=== PATIENT | female | born 2000 | race Caucasian/White ===

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

== ENCOUNTER 2018-04-21 22:52 | Inpatient (IN) | payer MEDICAID ==
[~2018-04-21] VITALS: Ht 160 cm; Wt 68.0 kg
[2018-04-22 00:09] LABS: BASOPHILS % (AUTO) 0.8 % (0.0-2.0); EOSINOPHILS % (AUTO) 0.5 % (1.0-6.0); HEMOGLOBIN 13.2 g/dL (12.0-16.0); LYMPHOCYTES % (AUTO) 17.1 % (22.0-44.0); MEAN CORPUSCULAR HGB CONC 33.9 G/dL (31.0-37.0); MEAN CORPUSCULAR VOLUME 83 fL (80-100); MONOCYTES # (AUTO) 0.3 K/uL (0.1-1.0); MONOCYTES % (AUTO) 5.9 % (2.0-9.0); NEUTROPHILS # (AUTO) 4.4 K/uL (1.8-7.7); NEUTROPHILS % (AUTO) 75.7 % (40.0-70.0); PLATELET COUNT (AUTO) 309 K/uL (150-450); RED BLOOD CELL COUNT(AUTO) 4.72 MIL/uL (4.00-5.20); RED CELL DISTRIBUTION WIDTH 15.2 % (11.5-14.5)
[2018-04-22 00:25] LABS: ANION GAP 13 mmol/L (8-16); CALCIUM, TOTAL 9.3 mg/dL (8.8-10.5); CARBON DIOXIDE 26 mmol/L (22-29); CHLORIDE 105 mmol/L (98-107); CREATININE 0.84 mg/dL (0.60-1.30); GLOMERULAR FILTR. RATE CALC > 60 mL/min (>60); GLUCOSE,RANDOM 105 mg/dL (70-110); POTASSIUM 3.6 mmol/L (3.5-5.1); SODIUM SERUM 144 mmol/L (136-145); UREA NITROGEN, BLOOD 7 mg/dL (7-18)
[2018-04-22 00:31] LABS: ALANINE AMINOTRANSFERASE 13 U/L (12-78); ALBUMIN 4.3 g/dL (3.4-5.0); ALKALINE PHOSPHATASE 113 U/L (46-116); ASPARTATE AMINOTRANSFERASE 14 U/L (15-37); BILIRUBIN,TOTAL 0.3 mg/dL (0.1-1.0); TOTAL PROTEIN, SERUM 8.3 g/dL (6.4-8.2)
[2018-04-22] MEDS ORDERED: HALOPERIDOL 5 MG TABLET PO PRN (00:45)
[2018-04-22 01:02] LABS: AMPHET/METH SCREEN,URINE NEGATIVE (NEGATIVE); BARBITURATE SCREEN, URINE NEGATIVE (NEGATIVE); BENZODIAZEPINES SCREEN,URINE NEGATIVE (NEGATIVE); CANNABINOID SCREEN,URINE NEGATIVE (NEGATIVE); COCAINE SCREEN,URINE NEGATIVE (NEGATIVE); METHADONE SCREEN, URINE NEGATIVE (NEGATIVE); OPIATE SCREEN,URINE NEGATIVE (NEGATIVE); PHENCYCLIDINE SCREEN,URINE NEGATIVE (NEGATIVE)
[2018-04-22 01:30] LABS: CHOL/HDL RATIO 3.9 (3.9-5.7); CHOLESTEROL 225 mg/dL (131-200); FREE T4 (FREE THYROXINE) 1.04 ng/dL (0.76-1.46); HDL CHOLESTEROL 57 mg/dL (40-60); LDL CHOL (CALC.) 145 mg/dL (0-130); THYROID STIMULATING HORMONE 0.48 uIU/mL (0.36-3.74); TRIGLYCERIDES 113 mg/dL (15-150)
[2018-04-22] MEDS ORDERED: ACETAMINOPHEN 500 MG TABLET PO ONE (10:00)
[2018-04-22 16:18] VITALS: BP 115/70
[2018-04-22] MEDS ORDERED: CloNIDine HCL 0.1 MG TABLET PO PRN (16:45)
[2018-04-22] MEDS ORDERED: MAGNESIUM HYDROXIDE SUSPENSION 30 ML UDCUP PO PRN (16:45)
[2018-04-22] MEDS ORDERED: ACETAMINOPHEN 325 MG TABLET PO PRN (16:45)
[2018-04-22] MEDS ORDERED: MAG HYDROX/AL HYDROX/SIMETH ES 30 ML SUSPENSION UDCUP PO PRN (16:45)
[2018-04-22] MEDS ORDERED: LOPERAMIDE HCL 2 MG CAPSULE PO PRN (16:45)
[2018-04-22] MEDS ORDERED: ONDANSETRON HCL 4 MG TABLET PO PRN (16:45)
[2018-04-22] MEDS ORDERED: DOCUSATE SODIUM 100 MG CAPSULE PO PRN (16:45)
[2018-04-22] MEDS ORDERED: IBUPROFEN 400 MG TABLET PO PRN (16:45)
[2018-04-22] MEDS ORDERED: PETROLATUM,WHITE 71 GM JELLY TP PRN (16:45)
[2018-04-22] MEDS ORDERED: ALBUTEROL SULFATE HFA 90 MCG/PUFF 8 GM INHALER IH PRN (16:45)
[2018-04-23 00:10] VITALS: BP 117/67
[2018-04-23] MEDS: ZOLPIDEM TARTRATE 10 MG TABLET PO PRN ×2 (00:30→21:10)
[2018-04-23] MEDS: LORazepam 1 MG TABLET PO PRN ×4 (00:30→20:39)
[2018-04-23 08:00] VITALS: BP 118/64
[2018-04-23 09:23] LABS: BASOPHILS % (AUTO) 0.9 % (0.0-2.0); EOSINOPHILS % (AUTO) 3.7 % (1.0-6.0); HEMATOCRIT 36.3 % (36-46); HEMOGLOBIN 12.1 g/dL (12.0-16.0); LYMPHOCYTES # (AUTO) 1.7 K/uL (1.0-4.8); LYMPHOCYTES % (AUTO) 36.4 % (22.0-44.0); MEAN CORPUSCULAR HEMOGLOBIN 27.7 pg (26.0-34.0); MEAN CORPUSCULAR HGB CONC 33.3 G/dL (31.0-37.0); MEAN CORPUSCULAR VOLUME 83 fL (80-100); MONOCYTES # (AUTO) 0.5 K/uL (0.1-1.0); NEUTROPHILS # (AUTO) 2.3 K/uL (1.8-7.7); PLATELET COUNT (AUTO) 286 K/uL (150-450); RED BLOOD CELL COUNT(AUTO) 4.36 MIL/uL (4.00-5.20)
[2018-04-23 10:14] LABS: ALANINE AMINOTRANSFERASE 11 U/L (12-78); ALBUMIN 3.7 g/dL (3.4-5.0); ALKALINE PHOSPHATASE 93 U/L (46-116); ANION GAP 9 mmol/L (8-16); ASPARTATE AMINOTRANSFERASE 12 U/L (15-37); BILIRUBIN,TOTAL 0.5 mg/dL (0.1-1.0); CALCIUM, TOTAL 8.8 mg/dL (8.8-10.5); CARBON DIOXIDE 28 mmol/L (22-29); CHLORIDE 105 mmol/L (98-107); CHOL/HDL RATIO 3.9 (3.9-5.7); CHOLESTEROL 177 mg/dL (131-200); CREATININE 0.91 mg/dL (0.60-1.30); GLOMERULAR FILTR. RATE CALC > 60 mL/min (>60); GLUCOSE,RANDOM 76 mg/dL (70-110); HDL CHOLESTEROL 45 mg/dL (40-60); LDL CHOL (CALC.) 104 mg/dL (0-130); POTASSIUM 3.6 mmol/L (3.5-5.1); SODIUM SERUM 142 mmol/L (136-145); THYROID STIMULATING HORMONE 0.69 uIU/mL (0.36-3.74); TRIGLYCERIDES 138 mg/dL (15-150); UREA NITROGEN, BLOOD 17 mg/dL (7-18)
[2018-04-23 16:34] VITALS: BP 132/77
[2018-04-24 05:32] VITALS: BP 115/83
[2018-04-24 08:29] VITALS: BP 108/61
[2018-04-24 16:06] VITALS: BP 106/68
[2018-04-24] MEDS ORDERED: MIRTAZAPINE 15 MG TABLET PO SCH (21:00)
[2018-04-24] MEDS: ZOLPIDEM TARTRATE 10 MG TABLET PO PRN (21:04)
[2018-04-25 02:12] VITALS: BP 103/65
[2018-04-25 08:30] VITALS: BP 113/66
[2018-04-25] MEDS ORDERED: MIRT15 PO (10:41)
== END 2018-04-25 11:45 | disposition home or self-care (01) | DRG 754 ==
LOC: EMS 22:53 → B2S 04-22 14:36
PROVIDERS: ADMIT Psychiatry & Neurology Psychiatry; ATTEND Psychiatry & Neurology Psychiatry
DX: F32.9 Major depressive disorder, single episode, unspecified (principal); R45.851 Suicidal ideations; R44.0 Auditory hallucinations; F41.9 Anxiety disorder, unspecified; F10.10 Alcohol abuse, uncomplicated; Y90.6 Blood alcohol level of 120-199 mg/100 ml; J45.909 Unspecified asthma, uncomplicated; Z71.41 Alcohol abuse counseling and surveillance of alcoholic; Z80.9 Family history of malignant neoplasm, unspecified; Z81.8 Family history of other mental and behavioral disorders; Z59.0 Homelessness
CPT/HCPCS: 83036; 84439; 84443; 99285; G0480

== ENCOUNTER 2022-11-03 21:56 | Emergency (ER) | payer MEDICAID, OTHER ==
[~2022-11-03] VITALS: Ht 160 cm; Wt 79.1 kg
[~2022-11-03 21:56] MED LIST changes: +MIRT-89 PO; -NO MEDS
[2022-11-03 23:31] VITALS: BP 129/83
[2022-11-04] MEDS ORDERED: CEPHALEXIN MONOHYDRATE 500 MG CAPSULE PO ONE (00:30)
[2022-11-04] MEDS ORDERED: DOXYCYCLINE HYCLATE 100 MG TABLET PO ONE (00:30)
[2022-11-04] MEDS ORDERED: ACETAMINOPHEN/CODEINE 300-30 MG TABLET PO ONE (00:30)
[2022-11-04] MEDS ORDERED: ACET-2080 PO (00:32)
[2022-11-04] MEDS ORDERED: CEPH-558 PO (00:32)
[2022-11-04] MEDS ORDERED: IBUP-1554 PO (00:32)
[2022-11-04] MEDS ORDERED: DOXY-354 PO (00:32)
== END 2022-11-04 00:53 | disposition home or self-care (01) ==
LOC: EMS 22:14
DX: L03.211 Cellulitis of face (principal); J40 Bronchitis, not specified as acute or chronic
CPT/HCPCS: 99284; Z7502; Z7610

== ENCOUNTER 2023-03-28 05:59 | Emergency (ER) | payer OTHER ==
[~2023-03-28] VITALS: Ht 160 cm; Wt 84.0 kg
[~2023-03-28 05:59] MED LIST changes: +ACET-2080 PO; +CEPH-558 PO; +DOXY-354 PO; +IBUP-1554 PO; -MIRT-89 PO
[2023-03-28 06:18] VITALS: BP 128/72; PULSE 82; RESP 17; TEMP 98.6
[2023-03-28 06:54] LABS: APPEARANCE,URINE TURBID (CLEAR); GLUCOSE, URINE (UA) NEGATIVE (NEGATIVE); KETONES,URINE NEGATIVE (NEGATIVE); LEUKOCYTE ESTERASE ,URINE LARGE (NEGATIVE); NITRATE,URINE POSITIVE (NEGATIVE); OCCULT BLOOD,URINE LARGE (NEGATIVE); PROTEIN,URINE 100-200,SEE CONFIRM mg/dL (NEGATIVE); SPECIFIC GRAVITIY, URINE 1.031 (1.003-1.030); UROBILINOGEN,URINE <=1.0 mg/dL (<=1.0)
[2023-03-28 06:56] LABS: BILIRUBIN,URINE SMALL (NEGATIVE)
[2023-03-28] MEDS ORDERED: NITR-75 PO (06:59)
[2023-03-28] MEDS ORDERED: PHEN-674 PO (06:59)
[2023-03-28 07:03] LABS: BACTERIA,URINE Many /HPF (None Seen); RBC,URINE 51-100 /HPF (0-2); SULFOSALICYLIC ACID,URINE 3+ (Negative); WBC,URINE >100 /HPF (0-5)
== END 2023-03-28 07:27 | disposition home or self-care (01) ==
LOC: EMS 06:01
DX: N39.0 Urinary tract infection, site not specified (principal); J45.909 Unspecified asthma, uncomplicated; F41.9 Anxiety disorder, unspecified; F32.A Depression, unspecified; Z87.440 Personal history of urinary (tract) infections
CPT/HCPCS: 81001; 81002; 87086; 87186; 99283

== ENCOUNTER 2023-04-06 15:07 | Emergency (ER) | payer OTHER ==
[~2023-04-06] VITALS: Ht 160 cm; Wt 77.3 kg
[~2023-04-06 15:07] MED LIST changes: -ACET-2080 PO; -CEPH-558 PO; -DOXY-354 PO; -IBUP-1554 PO; +NITR-75 PO; +PHEN-674 PO
[2023-04-06 15:18] VITALS: BP 112/84; PULSE 88; RESP 16; TEMP 98.2
[2023-04-06] MEDS ORDERED: HYDROCODONE/ACETAMINOPHEN 5-325 MG TABLET PO ONE (17:45)
== END 2023-04-06 17:47 | disposition home or self-care (01) ==
LOC: EMS 15:19
DX: K02.9 Dental caries, unspecified (principal); F41.9 Anxiety disorder, unspecified; J45.909 Unspecified asthma, uncomplicated; F32.A Depression, unspecified
CPT/HCPCS: 99283

== ENCOUNTER 2023-10-21 14:39 | Emergency (ER) | payer OTHER ==
[~2023-10-21] VITALS: Ht 157.5 cm; Wt 79.1 kg
[2023-10-21 14:50] VITALS: BP 116/61; PULSE 81; RESP 16; TEMP 98.4
[2023-10-21] MEDS ORDERED: AMOX250C4 PO (15:38)
[2023-10-21] MEDS ORDERED: KETOROLAC TROMETHAMINE 30 MG/ML VIAL IM ONE (15:45)
== END 2023-10-21 16:03 | disposition home or self-care (01) ==
LOC: EMS 14:39
DX: H66.91 Otitis media, unspecified, right ear (principal); H60.91 Unspecified otitis externa, right ear; F41.9 Anxiety disorder, unspecified; J45.909 Unspecified asthma, uncomplicated; F32.A Depression, unspecified
CPT/HCPCS: 99283; 96372; J1885